=== PATIENT | female | born 1930 | race Caucasian/White ===

== ENCOUNTER 2016-11-24 14:19 | Emergency (ER) | payer MEDICARE, OTHER ==
[2016-11-24 15:47] LABS: BILIRUBIN NEGATIVE (NEGATIVE); BLOOD TRACE-INTACT Ery/uL (NEGATIVE); CLARITY CLEAR (CLEAR); COLOR YELLOW (YELLOW); GLUCOSE (U) NORMAL (NORMAL); KETONE (U) NEGATIVE (NEGATIVE); LEUKOCYTES NEGATIVE Leu/uL (NEGATIVE); NITRITE NEGATIVE (NEGATIVE); PROTEIN NEGATIVE (NEGATIVE); UROBILINOGEN 0.2 mg/dL (0.2-1.0)
[2016-11-24 15:52] LABS: BACTERIA TRACE; URINARY WBC RARE
[2016-11-24 16:21] LABS: EOSINOPHIL 1.9 % (0-7); HCT 39.6 % (37.0-47.0); HGB 13.1 g/dl (12.5-16.0); LYMPHOCYTE 35.8 % (15-48); MCH 30.7 pg (25.0-31.0); MCHC 33.1 g/dL (32.0-36.0); MCV 92.7 fL (78.0-100.0); MONOCYTE 11.2 % (0-12); MPV 10.3 fL (6.0-9.5); NEUTROPHIL 50.1 % (41-80); PLT 223 K/uL (150-400); RBC 4.27 M/uL (4.20-5.40); RDW 14.2 % (11.5-14.0); WBC 4.8 K/uL (4.0-10.5)
[2016-11-24 16:25] LABS: INR 1.08 (0.9-1.2); PROTHROMBIN TIME 13.6 SECONDS (11.7-14.0); PTT 31.3 SECONDS (23.2-31.4)
[2016-11-24 16:57] LABS: ALBUMIN 4.2 g/dL (3.4-4.8); BILIRUBIN - TOTAL 0.4 mg/dL (0.1-1.0); CREATININE 0.9 mg/dL (0.5-1.0); GLOBULIN (CALCULATION) 2.4 g/dL (2.2-4.2); POTASSIUM 4.4 mmol/L (3.5-5.1); TOTAL PROTEIN 6.6 g/dL (6.4-8.3)
== END 2016-11-24 19:37 | disposition home or self-care (01) ==
LOC: FER 14:19
PROVIDERS: Internal Medicine
DX: I10 Essential (primary) hypertension (principal); F03.90 Unspecified dementia, unspecified severity, without behavioral disturbance, psychotic disturbance, mood disturbance, and anxiety; Z91.018 Allergy to other foods; W10.9XXA Fall (on) (from) unspecified stairs and steps, initial encounter; Y92.009 Unspecified place in unspecified non-institutional (private) residence as the place of occurrence of the external cause
CPT/HCPCS: 36415; 70450; 71020; 80053; 81001; 84484; 85025; 85610; 85730

== ENCOUNTER 2017-02-20 11:49 | Inpatient (IN) | payer MEDICARE, OTHER ==
[~2017-02-20] VITALS: Ht 163 cm; Wt 52.7 kg
[2017-02-20 14:51] LABS: BASOPHIL 0.5 % (0-2); HCT 38.4 % (37.0-47.0); HGB 13.1 g/dl (12.5-16.0); LYMPHOCYTE 14.8 % (15-48); MCHC 34.1 g/dL (32.0-36.0); MCV 90.8 fL (78.0-100.0); MPV 9.5 fL (6.0-9.5); NEUTROPHIL 74.7 % (41-80); PLT 142 K/uL (150-400); RBC 4.23 M/uL (4.20-5.40); RDW 13.8 % (11.5-14.0)
[2017-02-20 15:12] LABS: ALBUMIN 4.2 g/dL (3.4-4.8); BILIRUBIN - TOTAL 1.3 mg/dL (0.1-1.0); GLOBULIN (CALCULATION) 2.6 g/dL (2.2-4.2); POTASSIUM 3.8 mmol/L (3.5-5.1); TOTAL PROTEIN 6.8 g/dL (6.4-8.3)
[2017-02-21 03:29] LABS: HGB 12.3 g/dl (12.5-16.0); MCH 30.1 pg (25.0-31.0); MCHC 33.2 g/dL (32.0-36.0); MCV 90.7 fL (78.0-100.0); MPV 9.5 fL (6.0-9.5); RBC 4.08 M/uL (4.20-5.40); RDW 13.6 % (11.5-14.0); WBC 7.9 K/uL (4.0-10.5)
[2017-02-21 03:48] LABS: POTASSIUM 3.8 mmol/L (3.5-5.1)
[2017-02-21 09:25] LABS: BILIRUBIN NEGATIVE (NEGATIVE); BLOOD 3+ Ery/uL (NEGATIVE); CLARITY CLEAR (CLEAR); COLOR YELLOW (YELLOW); GLUCOSE (U) NORMAL (NORMAL); KETONE (U) 2+ (MODERATE) mg/dL (NEGATIVE); LEUKOCYTES TRACE Leu/uL (NEGATIVE); NITRITE NEGATIVE (NEGATIVE); PROTEIN 1+ mg/dL (NEGATIVE); SPECIFIC GRAVITY 1.025 (1.001-1.030); pH 6.5 (5.0-9.0)
[2017-02-21 09:31] LABS: BACTERIA TRACE
[2017-02-21 09:44] LABS: INR 1.28 (0.9-1.2); PROTHROMBIN TIME 15.5 SECONDS (11.7-14.0); PTT 37.2 SECONDS (23.2-31.4)
[2017-02-22 07:38] LABS: HCT 35.3 % (37.0-47.0); HGB 11.6 g/dl (12.5-16.0); MCH 30.5 pg (25.0-31.0); MCHC 32.9 g/dL (32.0-36.0); MCV 92.9 fL (78.0-100.0); MPV 9.4 fL (6.0-9.5); RBC 3.8 M/uL (4.20-5.40); RDW 13.8 % (11.5-14.0); WBC 6.3 K/uL (4.0-10.5)
[2017-02-22 08:06] LABS: CREATININE 0.8 mg/dL (0.5-1.0); POTASSIUM 4.1 mmol/L (3.5-5.1)
[2017-02-23 04:48] LABS: HCT 35.2 % (37.0-47.0); HGB 11.6 g/dl (12.5-16.0); MCH 30.4 pg (25.0-31.0); MCV 92.1 fL (78.0-100.0); MPV 10.3 fL (6.0-9.5); RBC 3.82 M/uL (4.20-5.40); RDW 13.8 % (11.5-14.0); WBC 6.6 K/uL (4.0-10.5)
[2017-02-23 05:08] LABS: CREATININE 0.7 mg/dL (0.5-1.0); POTASSIUM 4.6 mmol/L (3.5-5.1)
[2017-02-24 04:04] LABS: HCT 34.2 % (37.0-47.0); HGB 11.5 g/dl (12.5-16.0); MCH 30.4 pg (25.0-31.0); MCHC 33.6 g/dL (32.0-36.0); MCV 90.5 fL (78.0-100.0); PLT 134 K/uL (150-400); RBC 3.78 M/uL (4.20-5.40); WBC 5.6 K/uL (4.0-10.5)
[2017-02-24 04:12] LABS: CREATININE 0.6 mg/dL (0.5-1.0); POTASSIUM 3.6 mmol/L (3.5-5.1)
[2017-02-25 05:34] LABS: HCT 31.8 % (37.0-47.0); HGB 10.8 g/dl (12.5-16.0); MCH 30.1 pg (25.0-31.0); MCV 88.6 fL (78.0-100.0); MPV 9.7 fL (6.0-9.5); RBC 3.59 M/uL (4.20-5.40); RDW 13.3 % (11.5-14.0); WBC 5.5 K/uL (4.0-10.5)
[2017-02-25 05:57] LABS: ALBUMIN 2.8 g/dL (3.4-4.8); BILIRUBIN - TOTAL 0.9 mg/dL (0.1-1.0); CREATININE 0.6 mg/dL (0.5-1.0); GLOBULIN (CALCULATION) 2.5 g/dL (2.2-4.2); POTASSIUM 3.3 mmol/L (3.5-5.1); TOTAL PROTEIN 5.3 g/dL (6.4-8.3)
--- NOTE | 2017-02-26 11:29 | NUR ---
PT DOES NOT FOLLOW DIRECTIONS - WHILE GIVING PT HER MEDICATIONS IT WAS DIFFICULT TO KEEP PT ON TASK - EASILY DISTRACTED HOLDING PILLS IN HER MOUTH 15-20 MINTUES OF REDIRECTION FROM STAFF AND PT SON TO GET PT TO SUCCESSFULLY TAKE MEDICATIONS
[2017-02-27 05:17] LABS: HGB 10.5 g/dl (12.5-16.0); MCH 29.6 pg (25.0-31.0); MCHC 32.8 g/dL (32.0-36.0); MCV 90.1 fL (78.0-100.0); MPV 8.7 fL (6.0-9.5); RBC 3.55 M/uL (4.20-5.40); RDW 13.6 % (11.5-14.0); WBC 6.2 K/uL (4.0-10.5)
[2017-02-27 05:40] LABS: CREATININE 0.7 mg/dL (0.5-1.0); POTASSIUM 3.1 mmol/L (3.5-5.1)
[2017-02-28 07:08] LABS: HCT 31.8 % (37.0-47.0); HGB 10.3 g/dl (12.5-16.0); MCH 29.4 pg (25.0-31.0); MCHC 32.4 g/dL (32.0-36.0); MCV 90.9 fL (78.0-100.0); MPV 8.8 fL (6.0-9.5); RBC 3.5 M/uL (4.20-5.40); RDW 13.8 % (11.5-14.0); WBC 6.3 K/uL (4.0-10.5)
[2017-02-28 07:33] LABS: CREATININE 0.6 mg/dL (0.5-1.0); POTASSIUM 3.7 mmol/L (3.5-5.1)
== END 2017-02-28 16:40 | DRG 480 ==
LOC: FER 11:49 → FMS 14:24 → FTCU 02-23 14:38 → FMS 02-25 09:39
PROVIDERS: Internal Medicine Cardiovascular Disease; Legal Medicine; Nurse Practitioner; ADMIT Internal Medicine
PROC: 0QH634Z Insertion of Internal Fixation Device into Right Upper Femur, Percutaneous Approach (ICD-10-PCS; principal; 2017-02-22 12:00)
DX: S72.011A Unspecified intracapsular fracture of right femur, initial encounter for closed fracture (principal); J18.9 Pneumonia, unspecified organism; G93.41 Metabolic encephalopathy; I48.0 Paroxysmal atrial fibrillation; D64.9 Anemia, unspecified; G30.9 Alzheimer's disease, unspecified; F02.80 Dementia in other diseases classified elsewhere, unspecified severity, without behavioral disturbance, psychotic disturbance, mood disturbance, and anxiety; W01.0XXA Fall on same level from slipping, tripping and stumbling without subsequent striking against object, initial encounter; Y92.009 Unspecified place in unspecified non-institutional (private) residence as the place of occurrence of the external cause; Z66 Do not resuscitate; Z90.710 Acquired absence of both cervix and uterus; Z87.891 Personal history of nicotine dependence; Y95 Nosocomial condition; I10 Essential (primary) hypertension; E03.9 Hypothyroidism, unspecified
CPT/HCPCS: 36415; 71010; 71020; 72170; 73501; 73502; 73552; 73590; 73700; 76000; 80048; 80053; 81001; 82962; 83735; 85025; 85610; 85730; 86850; 86900; 86901; 87040; 87088; 93005; 94010; 94760; 94762; 97116; 97163; 97167; 97530; 97530-GP; 97535; C1713; C9113; J0131; J0697; J2060; J2270; J2543; J2704; J2795; J3010